=== PATIENT | female | born 1965 | race Two or more races ===

== ENCOUNTER 2020-09-24 08:37 | Day surgery (SDC) | payer BC ==
[2020-09-20 13:20] VITALS: BMI 53.8
[2020-09-24] MEDS ORDERED: PROPOFOL 20 ML ONE ×2 (09:41)
[2020-09-24] MEDS ORDERED: MIDAZOLAM HCL 2 MG/2 ML SINGLE DOSE VIAL ONE (09:41)
[2020-09-24 11:07] VITALS: TEMP 98
[2020-09-24 11:28] VITALS: BP 126/56; PULSE 66
== END 2020-09-24 11:36 | disposition home or self-care (01) ==
LOC: FASU-ENDO 08:37
PROVIDERS: ATTEND Internal Medicine Gastroenterology
PROC: 0DBN8ZX Excision of Sigmoid Colon, Via Natural or Artificial Opening Endoscopic, Diagnostic (ICD-10-PCS; 2020-09-24)
PROC: 0DBL8ZX Excision of Transverse Colon, Via Natural or Artificial Opening Endoscopic, Diagnostic (ICD-10-PCS; principal; 2020-09-24 10:04)
DX: Z12.11 Encounter for screening for malignant neoplasm of colon (principal); D12.5 Benign neoplasm of sigmoid colon; D12.3 Benign neoplasm of transverse colon; K57.30 Diverticulosis of large intestine without perforation or abscess without bleeding
CPT/HCPCS: 88305-TC